=== PATIENT | female | born 1940 | race Caucasian/White ===

== ENCOUNTER 2017-04-09 05:49 | Day surgery (SDC) | payer MEDICARE ==
[2017-04-09] MEDS ORDERED: LIDOCAINE 1% MDV 20ML VIAL SQ ×2 (06:00)
[2017-04-09] MEDS ORDERED: LR 1,000 ML IV ×4 (06:00→09:30)
[2017-04-09] MEDS ORDERED: MIDAZOLAM INJ 2 MG/2 ML VIAL (J2250) As Ordered ×2 (07:15)
[2017-04-09] MEDS ORDERED: fentaNYL 100 MCG/2 ML INJECTION (J3010) As Ordered ×2 (07:15)
[2017-04-09] MEDS ORDERED: PROPOFOL 200 MG/20 ML VIAL As Ordered ×2 (07:15)
[2017-04-09] MEDS ORDERED: ROCURONIUM BROMIDE 50 MG/5 ML VIAL As Ordered ×2 (07:15)
[2017-04-09] MEDS ORDERED: LIDOCAINE 2% INJ 100 MG/5 ML SDV (FOR ANES.) As Ordered ×2 (07:15)
[2017-04-09] MEDS ORDERED: PHENYLephrine HCL 500 MCG/5 ML (100MCG/ML) SYRINGE (J2370) As Ordered ×2 (07:54)
[2017-04-09] MEDS ORDERED: GLYCOPYRROLATE INJ 0.2 MG/ML 2 ML VIAL As Ordered ×2 (07:58)
[2017-04-09] MEDS ORDERED: ONDANSETRON 4MG/2ML VIAL (J2405) As Ordered ×2 (07:58)
[2017-04-09] MEDS ORDERED: NEOSTIGMINE 10 MG/10 ML VIAL (J2710) As Ordered ×2 (07:58)
[2017-04-09] MEDS: CETACAINE SPRAY 5GM As Ordered ×2 (08:00)
[2017-04-09] MEDS: EPINEPHrine 1MG/10ML SYRINGE 1.5IN As Ordered ×2 (09:10)
[2017-04-09] MEDS: THROMBIN SOLN 20,000 UNITS KIT As Ordered ×2 (09:11)
[2017-04-09] MEDS: LIDOCAINE 1% SDV INJ 30 ML VIAL As Ordered ×2 (09:11)
[2017-04-09] MEDS: LIDOCAINE VISCOUS 2% SOLN 15ML UDC As Ordered ×2 (09:11)
[2017-04-09] MEDS ORDERED: ONDANSETRON 4MG/2ML VIAL (J2405) IV ×2 (09:30)
[2017-04-09] MEDS ORDERED: fentaNYL 100 MCG/2 ML INJECTION (J3010) IV ×2 (09:30)
[2017-04-09] MEDS ORDERED: METOCLOPRAMIDE INJ 10MG/2ML VIAL (J2765) IV ×2 (09:30)
[2017-04-09] MEDS: PERCOCET 5MG/325MG TAB PO ×2 (09:36)
== END 2017-04-09 10:55 | disposition home or self-care (01) ==
LOC: M SDC 05:49
DX: R91.8 Other nonspecific abnormal finding of lung field (principal); R59.0 Localized enlarged lymph nodes; I10 Essential (primary) hypertension; E78.5 Hyperlipidemia, unspecified; K21.9 Gastro-esophageal reflux disease without esophagitis; M12.9 Arthropathy, unspecified; M54.9 Dorsalgia, unspecified; R06.09 Other forms of dyspnea; J30.9 Allergic rhinitis, unspecified; Z88.8 Allergy status to other drugs, medicaments and biological substances; Z79.899 Other long term (current) drug therapy; Z79.82 Long term (current) use of aspirin; Z95.820 Peripheral vascular angioplasty status with implants and grafts; Z98.1 Arthrodesis status; Z96.1 Presence of intraocular lens; Z95.5 Presence of coronary angioplasty implant and graft
CPT/HCPCS: 31623

== ENCOUNTER 2018-01-03 05:55 | Day surgery (SDC) | payer MEDICARE ==
[2018-01-03] MEDS ORDERED: LR 1,000 ML IV ×2 (06:15→08:45)
[2018-01-03] MEDS ORDERED: ROCURONIUM BROMIDE 50 MG/5 ML VIAL As Ordered (07:19)
[2018-01-03] MEDS ORDERED: dexameTHASONE 4 MG/ML 1ML VIAL (J1100) As Ordered (07:19)
[2018-01-03] MEDS ORDERED: PROPOFOL 200 MG/20 ML VIAL As Ordered (07:19)
[2018-01-03] MEDS ORDERED: MIDAZOLAM INJ 2 MG/2 ML VIAL (J2250) As Ordered (07:19)
[2018-01-03] MEDS ORDERED: LIDOCAINE 2% INJ 100 MG/5 ML SDV (FOR ANES.) As Ordered (07:19)
[2018-01-03] MEDS ORDERED: fentaNYL 100 MCG/2 ML INJECTION (J3010) As Ordered (07:19)
[2018-01-03] MEDS: LIDOCAINE 1% SDV INJ 30 ML VIAL As Ordered (07:20)
[2018-01-03] MEDS: EPINEPHrine 1MG/10ML SYRINGE 1.5IN As Ordered (07:21)
[2018-01-03] MEDS: THROMBIN SOLN 5,000 UNITS VIAL As Ordered (07:21)
[2018-01-03] MEDS: LIDOCAINE VISCOUS 2% SOLN 15ML UDC As Ordered (07:21)
[2018-01-03] MEDS: CETACAINE SPRAY 5GM As Ordered (07:45)
[2018-01-03] MEDS ORDERED: SUGAMMADEX SODIUM 500 MG/5 ML VIAL (BRIDION) As Ordered (08:03)
[2018-01-03] MEDS ORDERED: fentaNYL 100 MCG/2 ML INJECTION (J3010) IV (08:45)
[2018-01-03] MEDS ORDERED: METOCLOPRAMIDE INJ 10MG/2ML VIAL (J2765) IV (08:45)
[2018-01-03] MEDS ORDERED: MEPERIDINE INJ 25 MG/ML VIAL (J2175) IV (08:45)
[2018-01-03] MEDS ORDERED: ONDANSETRON 4MG/2ML VIAL (J2405) IV (08:45)
[2018-01-03] MEDS ORDERED: PERCOCET 5MG/325MG TAB PO (08:45)
[2018-01-03] MEDS ORDERED: PHENYLephrine HCL 500 MCG/5 ML (100MCG/ML) SYRINGE (J2370) As Ordered (08:51)
[2018-01-03 11:39] LABS: APPEARANCE TURBID (CLEAR); SOURCE RIGHT MIDDLE LOBE; WBC BAL COUNTED 31
[2018-01-03 11:42] LABS: BAL WBC 34 CELLS/uL (0-10); DILUTION FACTOR 1
[2018-01-03 11:43] LABS: BAL DIFF IF INDICATED? YES (NO)
[2018-01-03 12:04] LABS: CC BAL DIFF EXAM CYTOCENTRIFUGE; MONOCYTES/MACROPHAGES, BAL 85 %
== END 2018-01-03 10:00 | disposition home or self-care (01) ==
LOC: M SDC 05:55
DX: R91.8 Other nonspecific abnormal finding of lung field (principal); I10 Essential (primary) hypertension; E78.5 Hyperlipidemia, unspecified; Z79.899 Other long term (current) drug therapy; Z79.82 Long term (current) use of aspirin; Z92.3 Personal history of irradiation; Z92.21 Personal history of antineoplastic chemotherapy; Z85.118 Personal history of other malignant neoplasm of bronchus and lung; Z87.891 Personal history of nicotine dependence
CPT/HCPCS: 31624